=== PATIENT | male | born 1960 | race Caucasian/White ===

== ENCOUNTER 2019-04-22 10:35 | Outpatient (CLI) | payer BC ==
[2019-04-22 11:07] LABS: INR-International Normal Ratio 2.1; Prothrombin Time 23.8 SEC (12.0-14.7)
== END 2019-04-22 10:36 | disposition home or self-care (01) ==
LOC: MADLABBHPM 10:35
PROVIDERS: ATTEND Family Medicine
DX: Z51.81 Encounter for therapeutic drug level monitoring (principal); D68.61 Antiphospholipid syndrome; Z79.01 Long term (current) use of anticoagulants
CPT/HCPCS: 36415; 85610

== ENCOUNTER 2019-06-30 08:00 | Outpatient (CLI) | payer BC ==
[2019-06-30 08:25] LABS: INR-International Normal Ratio 2.2; Prothrombin Time 24.4 SEC (12.0-14.7)
== END 2019-06-30 08:01 | disposition home or self-care (01) ==
LOC: MADLABBHPM 08:00
PROVIDERS: ATTEND Family Medicine
DX: Z51.81 Encounter for therapeutic drug level monitoring (principal); D68.61 Antiphospholipid syndrome; Z79.01 Long term (current) use of anticoagulants
CPT/HCPCS: 36415; 85610

== ENCOUNTER 2019-07-28 07:25 | Outpatient (CLI) | payer BC ==
[2019-07-28 07:50] LABS: INR-International Normal Ratio 1.8; Prothrombin Time 20.9 SEC (12.0-14.7)
== END 2019-07-28 07:26 | disposition home or self-care (01) ==
LOC: MADLABBHPM 07:25
PROVIDERS: ATTEND Family Medicine
DX: Z51.81 Encounter for therapeutic drug level monitoring (principal); D68.61 Antiphospholipid syndrome; Z79.01 Long term (current) use of anticoagulants
CPT/HCPCS: 36415; 85610

== ENCOUNTER 2020-01-08 07:18 | Outpatient (CLI) | payer BC ==
[2020-01-08 07:59] LABS: INR-International Normal Ratio 1.9; Prothrombin Time 21.6 sec (12.0-14.7)
== END 2020-01-08 07:19 | disposition home or self-care (01) ==
LOC: MADLAB 07:18
PROVIDERS: ATTEND Family Medicine
DX: Z51.81 Encounter for therapeutic drug level monitoring (principal); Z79.01 Long term (current) use of anticoagulants
CPT/HCPCS: 36415; 85610

== ENCOUNTER 2020-02-10 07:40 | Outpatient (CLI) | payer BC ==
[2020-02-10 08:01] LABS: INR-International Normal Ratio 2.1; Prothrombin Time 23.6 sec (12.0-14.7)
== END 2020-02-10 07:41 | disposition home or self-care (01) ==
LOC: MADLAB 07:40
PROVIDERS: ATTEND Family Medicine
DX: Z51.81 Encounter for therapeutic drug level monitoring (principal); Z79.01 Long term (current) use of anticoagulants
CPT/HCPCS: 36415; 85610

== ENCOUNTER 2020-04-07 07:29 | Outpatient (CLI) | payer BC ==
[2020-04-07 07:47] LABS: #Basophils 0.1 thou/uL (0.0-0.2); #Eosinphils 0.1 thou/uL (0.0-0.7); #Lymphocytes 1.8 thou/uL (1.20-3.40); #Monocytes 0.7 thou/uL (0.11-0.59); #Neutrophils 6.7 thou/uL (1.40-6.50); %Basophils 1.3 % (0.0-1.0); %Eosinophils 0.6 % (0.0-10.0); %Lymphocytes 19.5 % (21.0-51.0); %Monocytes 7.3 % (0.0-10.0); %Neutrophils 71.3 % (42.0-75.0); Mean Corpuscular HGB CONC 32.2 g/dL (32.0-36.0); Mean Corpuscular Hemoglobin 29.7 pg (27.0-31.0); Mean Corpuscular Volume 92.1 fL (78.0-98.0); Mean Platelet Volume 7.4 fL (7.4-10.4); Platelet Count 305 thou/uL (130-400); RBC Distribution Width 12.4 % (11.5-14.5); Red Blood Cell (RBC) Count 5.04 mill/uL (4.70-6.10); White Blood Cell (WBC) Count 9.4 thou/uL (4.8-10.8)
[2020-04-07 08:22] LABS: Prothrombin Time 22.4 sec (12.0-14.7)
[2020-04-07 08:25] LABS: ALT (SGPT) 20 U/L (8-55); AST (SGOT) 15 U/L (5-34); Albumin 4.2 g/dL (3.5-5.0); Alkaline Phosphatase 84 U/L (40-110); Anion Gap 13 mmol/L (10-20); BUN (Urea Nitrogen) 12 mg/dL (8.4-25.7); Bilirubin, Total 0.5 mg/dL (0.2-1.2); Calc. Creatinine Clearance 0 mL/min (70-130); Carbon Dioxide 24 mmol/L (22-29); Cardiac Risk 3.6 (Less than 4.5); Chloride 106 mmol/L (98-107); Cholesterol 185 mg/dl (< 200 Desired); Estimated GFR-MDRD Greater than 90; Globulin 2.7 g/dL (2.4-3.5); Glucose 98 mg/dL (70-105); HDL Cholesterol 52 mg/dL (>60 Neg Risk); LDL Cholesterol, Calculated 118 mg/dL; Potassium 4.4 mmol/L (3.5-5.1); Protein, Total 6.9 g/dL (6.0-8.3); Sodium 139 mmol/L (136-145); Triglycerides 77 mg/dL (Less than 150)
== END 2020-04-07 07:30 | disposition home or self-care (01) ==
LOC: MADLAB 07:29
PROVIDERS: ATTEND Family Medicine
DX: Z51.81 Encounter for therapeutic drug level monitoring (principal); D68.61 Antiphospholipid syndrome; I10 Essential (primary) hypertension; Z79.01 Long term (current) use of anticoagulants
CPT/HCPCS: 36415; 80053; 80061; 84443; 85025; 85610

== ENCOUNTER 2020-05-07 07:53 | Outpatient (CLI) | payer BC ==
[2020-05-07 08:24] LABS: INR-International Normal Ratio 2.2; Prothrombin Time 24.4 sec (12.0-14.7)
== END 2020-05-07 07:54 | disposition home or self-care (01) ==
LOC: MADLABBHPM 07:53
PROVIDERS: ATTEND Family Medicine
DX: Z51.81 Encounter for therapeutic drug level monitoring (principal); Z79.01 Long term (current) use of anticoagulants
CPT/HCPCS: 36415; 85610

== ENCOUNTER 2020-06-09 07:41 | Outpatient (CLI) | payer BC ==
[2020-06-09 08:27] LABS: INR-International Normal Ratio 2.2; Prothrombin Time 24.3 sec (12.0-14.7)
== END 2020-06-09 07:42 | disposition home or self-care (01) ==
LOC: MADLABBHPM 07:41
PROVIDERS: ATTEND Family Medicine
DX: Z51.81 Encounter for therapeutic drug level monitoring (principal); Z79.01 Long term (current) use of anticoagulants
CPT/HCPCS: 36415; 85610

== ENCOUNTER 2020-07-07 07:50 | Outpatient (CLI) | payer BC ==
[2020-07-07 08:14] LABS: INR-International Normal Ratio 2.1; Prothrombin Time 23.9 sec (12.0-14.7)
[2020-07-07 08:38] LABS: Cardiac Risk 3.4 (Less than 4.5)
== END 2020-07-07 07:51 | disposition home or self-care (01) ==
LOC: MADLABBHPM 07:50
PROVIDERS: ATTEND Family Medicine
DX: Z51.81 Encounter for therapeutic drug level monitoring (principal); E78.5 Hyperlipidemia, unspecified; Z79.01 Long term (current) use of anticoagulants
CPT/HCPCS: 36415; 80061; 85610

== ENCOUNTER 2020-08-11 07:46 | Outpatient (CLI) | payer BC ==
[2020-08-11 08:15] LABS: INR-International Normal Ratio 2.2; Prothrombin Time 25.1 sec (12.0-14.7)
== END 2020-08-11 07:47 | disposition home or self-care (01) ==
LOC: MADLAB 07:46
PROVIDERS: ATTEND Family Medicine
DX: Z51.81 Encounter for therapeutic drug level monitoring (principal); Z79.01 Long term (current) use of anticoagulants
CPT/HCPCS: 36415; 85610

== ENCOUNTER 2020-09-15 08:28 | Outpatient (CLI) | payer BC ==
[2020-09-15 09:52] LABS: INR-International Normal Ratio 2.3
== END 2020-09-15 08:29 | disposition home or self-care (01) ==
LOC: MADLAB 08:28
PROVIDERS: ATTEND Family Medicine
DX: Z51.81 Encounter for therapeutic drug level monitoring (principal); Z79.01 Long term (current) use of anticoagulants
CPT/HCPCS: 36415; 85610

== ENCOUNTER 2020-11-15 07:52 | Outpatient (CLI) | payer BC ==
[2020-11-15 09:05] LABS: Prothrombin Time 22.7 sec (12.0-14.7)
== END 2020-11-15 07:53 | disposition home or self-care (01) ==
LOC: MADLAB 07:52
PROVIDERS: ATTEND Family Medicine
DX: Z51.81 Encounter for therapeutic drug level monitoring (principal); Z79.01 Long term (current) use of anticoagulants
CPT/HCPCS: 36415; 85610

== ENCOUNTER 2020-12-09 11:03 | Emergency (ER) | payer BC ==
[~2020-12-09 11:03] MED LIST: Iopamidol 370 76% 125 ML VIAL FS ONE; Sodium Chloride 0.9% 100 ML BAG ONE
[2020-12-09 11:17] LABS: #Basophils 0.2 thou/uL (0.0-0.2); #Lymphocytes 1.5 thou/uL (1.20-3.40); #Monocytes 0.8 thou/uL (0.11-0.59); #Neutrophils 6.5 thou/uL (1.40-6.50); %Basophils 1.7 % (0.0-1.0); %Eosinophils 0.1 % (0.0-10.0); %Lymphocytes 16.5 % (21.0-51.0); %Monocytes 8.7 % (0.0-10.0); %Neutrophils 72.9 % (42.0-75.0); Hemoglobin 14.2 g/dL (14.0-18.0); Mean Corpuscular HGB CONC 33.7 g/dL (32.0-36.0); Mean Corpuscular Hemoglobin 31.6 pg (27.0-31.0); Mean Corpuscular Volume 93.6 fL (78.0-98.0); Mean Platelet Volume 8.8 fL (7.4-10.4); Platelet Count 274 thou/uL (130-400); RBC Distribution Width 12.3 % (11.5-14.5); Red Blood Cell (RBC) Count 4.49 mill/uL (4.70-6.10); White Blood Cell (WBC) Count 8.9 thou/uL (4.8-10.8)
[2020-12-09 11:23] LABS: INR-International Normal Ratio 2.1; Prothrombin Time 23.6 sec (12.0-14.7)
[2020-12-09 11:33] LABS: PTT 41.6 sec (22.9-36.1)
[2020-12-09 11:34] LABS: ALT (SGPT) 19 U/L (8-55); AST (SGOT) 17 U/L (5-34); Albumin 4.1 g/dL (3.4-4.8); Alkaline Phosphatase 85 U/L (40-110); Anion Gap 14 mmol/L (10-20); BUN (Urea Nitrogen) 13 mg/dL (8.4-25.7); Bilirubin, Total 0.7 mg/dL (0.2-1.2); Calc. Creatinine Clearance 0 mL/min (70-130); Calcium 8.5 mg/dL (7.8-10.44); Carbon Dioxide 19 mmol/L (23-31); Chloride 107 mmol/L (98-107); Globulin 2.6 g/dL (2.4-3.5); Glucose 95 mg/dL (80-115); Potassium 4.1 mmol/L (3.5-5.1); Protein, Total 6.7 g/dL (5.8-8.1); Sodium 136 mmol/L (136-145)
== END 2020-12-09 12:45 | disposition short-term general hospital (02) ==
LOC: MADERS 11:03
DX: I63.89 Other cerebral infarction (principal); I10 Essential (primary) hypertension; E78.5 Hyperlipidemia, unspecified; Z79.01 Long term (current) use of anticoagulants; Z79.899 Other long term (current) drug therapy
CPT/HCPCS: 36416; 70450; 70496; 70498; 80053; 84484; 85025; 85610; 85730; 93005; 94760; J3490; Q9967

== ENCOUNTER 2020-12-15 07:11 | Outpatient (CLI) | payer BC ==
[2020-12-15 07:35] LABS: INR-International Normal Ratio 1.9; Prothrombin Time 22.4 sec (12.0-14.7)
== END 2020-12-15 07:12 | disposition home or self-care (01) ==
LOC: MADLAB 07:11
PROVIDERS: ATTEND Family Medicine
DX: Z51.81 Encounter for therapeutic drug level monitoring (principal); Z79.01 Long term (current) use of anticoagulants
CPT/HCPCS: 36415; 85610

== ENCOUNTER 2020-12-29 07:21 | Outpatient (CLI) | payer BC ==
[2020-12-29 07:51] LABS: INR-International Normal Ratio 2.4; Prothrombin Time 26.3 sec (12.0-14.7)
== END 2020-12-29 07:22 | disposition home or self-care (01) ==
LOC: MADLAB 07:21
PROVIDERS: ATTEND Family Medicine
DX: Z51.81 Encounter for therapeutic drug level monitoring (principal); Z79.01 Long term (current) use of anticoagulants
CPT/HCPCS: 36415; 85610

== ENCOUNTER 2021-02-18 07:28 | Outpatient (CLI) | payer BC ==
[2021-02-18 08:51] LABS: Prothrombin Time 23.1 sec (12.0-14.7)
== END 2021-02-18 07:29 | disposition home or self-care (01) ==
LOC: MADLAB 07:28
PROVIDERS: ATTEND Family Medicine
DX: Z51.81 Encounter for therapeutic drug level monitoring (principal); Z79.01 Long term (current) use of anticoagulants
CPT/HCPCS: 36415; 85610

== ENCOUNTER 2021-03-15 07:45 | Outpatient (CLI) | payer BC ==
[2021-03-15 08:19] LABS: INR-International Normal Ratio 1.7; Prothrombin Time 20.3 sec (12.0-14.7)
[2021-03-15 08:30] LABS: ALT (SGPT) 37 U/L (8-55); AST (SGOT) 17 U/L (5-34); Albumin 3.9 g/dL (3.4-4.8); Alkaline Phosphatase 75 U/L (40-110); Anion Gap 11 mmol/L (10-20); BUN (Urea Nitrogen) 11 mg/dL (8.4-25.7); Bilirubin, Total 0.5 mg/dL (0.2-1.2); Calc. Creatinine Clearance 0 mL/min (70-130); Calcium 8.6 mg/dL (7.8-10.44); Carbon Dioxide 23 mmol/L (23-31); Chloride 111 mmol/L (98-107); Cholesterol 136 mg/dl (< 200 Desired); Globulin 2.5 g/dL (2.4-3.5); Glucose 101 mg/dL (80-115); HDL Cholesterol 45 mg/dL (>60 Neg Risk); LDL Cholesterol, Calculated 80 mg/dL; Potassium 4.3 mmol/L (3.5-5.1); Protein, Total 6.4 g/dL (5.8-8.1); Sodium 141 mmol/L (136-145); Triglycerides 54 mg/dL (Less than 150)
== END 2021-03-15 07:46 | disposition home or self-care (01) ==
LOC: MADLAB 07:45
PROVIDERS: ATTEND Family Medicine
DX: Z51.81 Encounter for therapeutic drug level monitoring (principal); E78.5 Hyperlipidemia, unspecified; Z79.01 Long term (current) use of anticoagulants
CPT/HCPCS: 36415; 80053; 80061; 85610

== ENCOUNTER 2021-03-28 07:20 | Outpatient (CLI) | payer BC ==
[2021-03-28 07:49] LABS: INR-International Normal Ratio 1.8
== END 2021-03-28 07:21 | disposition home or self-care (01) ==
LOC: MADLAB 07:20
PROVIDERS: ATTEND Family Medicine
DX: Z51.81 Encounter for therapeutic drug level monitoring (principal); Z79.01 Long term (current) use of anticoagulants
CPT/HCPCS: 36415; 85610

== ENCOUNTER 2021-04-07 07:03 | Outpatient (CLI) | payer BC ==
[2021-04-07 07:41] LABS: INR-International Normal Ratio 1.9
[2021-04-07 07:44] LABS: ALT (SGPT) 31 U/L (8-55); AST (SGOT) 18 U/L (5-34); Albumin 3.9 g/dL (3.4-4.8); Alkaline Phosphatase 74 U/L (40-110); Anion Gap 12 mmol/L (10-20); BUN (Urea Nitrogen) 15 mg/dL (8.4-25.7); Bilirubin, Total 0.7 mg/dL (0.2-1.2); Calc. Creatinine Clearance 0 mL/min (70-130); Calcium 8.9 mg/dL (7.8-10.44); Carbon Dioxide 24 mmol/L (23-31); Cardiac Risk 2.8 (Less than 4.5); Chloride 109 mmol/L (98-107); Cholesterol 132 mg/dl (< 200 Desired); Globulin 2.6 g/dL (2.4-3.5); Glucose 102 mg/dL (80-115); HDL Cholesterol 47 mg/dL (>60 Neg Risk); LDL Cholesterol, Calculated 74 mg/dL; Potassium 4.3 mmol/L (3.5-5.1); Protein, Total 6.5 g/dL (5.8-8.1); Sodium 141 mmol/L (136-145); Triglycerides 56 mg/dL (Less than 150)
[2021-04-07 08:25] LABS: #Basophils 0.1 thou/uL (0.0-0.2); #Eosinphils 0.1 thou/uL (0.0-0.7); #Lymphocytes 1.5 thou/uL (1.20-3.40); #Monocytes 0.7 thou/uL (0.11-0.59); #Neutrophils 3.6 thou/uL (1.40-6.50); %Basophils 1.2 % (0.0-1.0); %Eosinophils 2.3 % (0.0-10.0); %Lymphocytes 24.5 % (21.0-51.0); %Monocytes 11.7 % (0.0-10.0); %Neutrophils 60.3 % (42.0-75.0); Hemoglobin 13.9 g/dL (14.0-18.0); Mean Corpuscular HGB CONC 31.9 g/dL (32.0-36.0); Mean Corpuscular Hemoglobin 29.6 pg (27.0-31.0); Mean Corpuscular Volume 92.7 fL (78.0-98.0); Mean Platelet Volume 8.2 fL (7.4-10.4); Platelet Count 250 thou/uL (130-400); RBC Distribution Width 12.3 % (11.5-14.5); Red Blood Cell (RBC) Count 4.71 mill/uL (4.70-6.10)
== END 2021-04-07 07:04 | disposition home or self-care (01) ==
LOC: MADLAB 07:03
PROVIDERS: ATTEND Family Medicine
DX: Z51.81 Encounter for therapeutic drug level monitoring (principal); E78.5 Hyperlipidemia, unspecified; I10 Essential (primary) hypertension; Z79.01 Long term (current) use of anticoagulants
CPT/HCPCS: 36415; 80053; 80061; 85025; 85610

== ENCOUNTER 2021-05-25 07:12 | Outpatient (CLI) | payer BC ==
[2021-05-25 07:55] LABS: INR-International Normal Ratio 2.4
== END 2021-05-25 07:13 | disposition home or self-care (01) ==
LOC: MADLAB 07:12
PROVIDERS: ATTEND Family Medicine
DX: Z51.81 Encounter for therapeutic drug level monitoring (principal); Z79.899 Other long term (current) drug therapy
CPT/HCPCS: 36415; 85610

== ENCOUNTER 2021-06-22 07:13 | Outpatient (CLI) | payer BC ==
[2021-06-22 07:46] LABS: INR-International Normal Ratio 2.7; Prothrombin Time 28.9 sec (12.0-14.7)
== END 2021-06-22 07:14 | disposition home or self-care (01) ==
LOC: MADLAB 07:13
PROVIDERS: ATTEND Family Medicine
DX: Z51.81 Encounter for therapeutic drug level monitoring (principal); Z79.01 Long term (current) use of anticoagulants
CPT/HCPCS: 36415; 85610

== ENCOUNTER 2021-07-22 07:37 | Outpatient (CLI) | payer BC ==
[2021-07-22 08:14] LABS: INR-International Normal Ratio 2.3
== END 2021-07-22 07:38 | disposition home or self-care (01) ==
LOC: MADLAB 07:37
PROVIDERS: ATTEND Family Medicine
DX: D68.61 Antiphospholipid syndrome (principal)
CPT/HCPCS: 36415; 85610

== ENCOUNTER 2021-08-23 07:44 | Outpatient (CLI) | payer BC ==
[2021-08-23 08:08] LABS: INR-International Normal Ratio 2.3; Prothrombin Time 25.4 sec (12.0-14.7)
== END 2021-08-23 07:45 | disposition home or self-care (01) ==
LOC: MADLAB 07:44
PROVIDERS: ATTEND Family Medicine
DX: D68.61 Antiphospholipid syndrome (principal)
CPT/HCPCS: 36415; 85610

== ENCOUNTER 2021-09-22 07:14 | Outpatient (CLI) | payer BC ==
[2021-09-22 07:58] LABS: INR-International Normal Ratio 2.4; Prothrombin Time 26.9 sec (12.0-14.7)
== END 2021-09-22 07:15 | disposition home or self-care (01) ==
LOC: MADLAB 07:14
PROVIDERS: ATTEND Family Medicine
DX: D68.61 Antiphospholipid syndrome (principal)
CPT/HCPCS: 36415; 85610

== ENCOUNTER 2021-11-14 08:16 | Outpatient (CLI) | payer BC ==
[2021-11-14 08:59] LABS: INR-International Normal Ratio 2.3
== END 2021-11-14 08:17 | disposition home or self-care (01) ==
LOC: MADLAB 08:16
PROVIDERS: ATTEND Family Medicine
DX: Z51.81 Encounter for therapeutic drug level monitoring (principal); D68.61 Antiphospholipid syndrome; Z79.01 Long term (current) use of anticoagulants
CPT/HCPCS: 36415; 85610

== ENCOUNTER 2022-01-09 07:27 | Outpatient (CLI) | payer BC ==
[2022-01-09 08:27] LABS: INR-International Normal Ratio 2.5; Prothrombin Time 27.9 sec (12.0-14.7)
== END 2022-01-09 07:28 | disposition home or self-care (01) ==
LOC: MADLAB 07:27
PROVIDERS: ATTEND Family Medicine
DX: Z51.81 Encounter for therapeutic drug level monitoring (principal); D68.61 Antiphospholipid syndrome; Z79.01 Long term (current) use of anticoagulants
CPT/HCPCS: 36415; 85610